=== PATIENT | male | born 1995 | race Caucasian/White ===

== ENCOUNTER 2018-05-13 12:39 | Emergency (ER) | payer OTHER ==
[2018-05-13] MEDS: DERMABOND TOPICAL SKIN ADHESIVE TOP (13:08)
== END 2018-05-13 14:12 | disposition home or self-care (01) ==
LOC: M ED 12:39
DX: S01.81XA Laceration without foreign body of other part of head, initial encounter (principal); S06.0X0A Concussion without loss of consciousness, initial encounter; X58.XXXA Exposure to other specified factors, initial encounter; Y92.9 Unspecified place or not applicable; Y93.9 Activity, unspecified; Y99.9 Unspecified external cause status
CPT/HCPCS: 70450